=== PATIENT | female | born 1950 | race Native Hawaiian/Other Pacific Islander ===

== ENCOUNTER 2016-09-03 16:48 | Outpatient (CLI) | payer OTHER | END 2016-09-03 20:01 | disposition home or self-care (01) | LOC: US 16:48 | DX: M79.605 Pain in left leg (principal) ==

== ENCOUNTER 2018-01-25 09:58 | Outpatient (CLI) | payer OTHER | END 2018-01-25 19:30 | disposition home or self-care (01) | LOC: US 09:58 | DX: Z12.31 Encounter for screening mammogram for malignant neoplasm of breast (principal); M79.604 Pain in right leg; M79.605 Pain in left leg ==

== ENCOUNTER 2018-03-16 09:27 | Outpatient (CLI) | payer OTHER | END 2018-03-16 21:31 | disposition home or self-care (01) | LOC: MAMMO 09:27 | DX: R92.8 Other abnormal and inconclusive findings on diagnostic imaging of breast (principal) ==

== ENCOUNTER 2018-08-30 11:18 | Outpatient (CLI) | payer OTHER | END 2018-08-30 19:26 | disposition home or self-care (01) | LOC: RAD 11:18 | DX: M25.562 Pain in left knee (principal) ==

== ENCOUNTER 2019-07-18 08:28 | Outpatient (CLI) | payer OTHER | END 2019-07-18 19:41 | disposition home or self-care (01) | LOC: RAD 08:28 | DX: M79.671 Pain in right foot (principal) ==

== ENCOUNTER 2020-09-04 09:36 | Outpatient (CLI) | payer OTHER | END 2020-09-04 21:06 | disposition home or self-care (01) | LOC: INF 09:36 | PROVIDERS: ATTEND Internal Medicine | DX: Z23 Encounter for immunization (principal) | CPT/HCPCS: 96372 ==

== ENCOUNTER 2020-10-01 08:57 | Outpatient (CLI) | payer OTHER | END 2020-10-01 20:02 | disposition home or self-care (01) | LOC: INF 08:57 | PROVIDERS: ATTEND Internal Medicine | DX: Z23 Encounter for immunization (principal) | CPT/HCPCS: 96372 ==

== ENCOUNTER 2021-04-30 08:59 | Outpatient (CLI) | payer OTHER | END 2021-04-30 19:15 | disposition home or self-care (01) | LOC: RAD 08:59 | PROVIDERS: ATTEND Nurse Practitioner Primary Care | DX: I73.9 Peripheral vascular disease, unspecified (principal) | CPT/HCPCS: 36598 ==

== ENCOUNTER 2022-07-30 08:36 | Outpatient (CLI) | payer OTHER | END 2022-07-30 19:36 | disposition home or self-care (01) | LOC: RESP 08:36 | PROVIDERS: ATTEND Nurse Practitioner Family | DX: I10 Essential (primary) hypertension (principal) ==

== ENCOUNTER 2022-08-06 08:02 | Outpatient (CLI) | payer OTHER ==
[~2022-08-06] VITALS: Ht 162.6 cm; Wt 138.3 kg
== END 2022-08-06 21:44 | disposition home or self-care (01) ==
LOC: NM 08:02
PROVIDERS: ATTEND Nurse Practitioner Family
DX: I10 Essential (primary) hypertension (principal); Z79.899 Other long term (current) drug therapy
CPT/HCPCS: A9500; J2785

== ENCOUNTER 2023-08-17 08:38 | Outpatient (CLI) | payer OTHER | END 2023-08-17 19:04 | disposition home or self-care (01) | LOC: US 08:38 | PROVIDERS: ATTEND Nurse Practitioner Family | DX: I73.9 Peripheral vascular disease, unspecified (principal) ==